=== PATIENT | male | born 1980 | race Hispanic/Latino ===

== ENCOUNTER 2019-07-21 08:20 | Day surgery (SDC) | payer MEDICARE ==
[~2019-07-21] VITALS: Ht 177.8 cm; Wt 97.1 kg
[~2019-07-21 08:20] MED LIST: DEXL60CA3 PO; DULO60CA64 PO; METO25TA6 PO; OLME20TA22 PO; ONDA4TAB10 PO; OXCA300T52 PO; SODIUM CHLORIDE 0.9% 1000ML 1,000 ML IV ONE; TOPI100T37 PO; TRAM50TA4 PO
[2019-07-21 08:30] VITALS: BP 109/75
[2019-07-21] MEDS ORDERED: LEVE750T10 PO (08:59)
[2019-07-21] MEDS ORDERED: PROPOFOL 10 MG/ML 20ML VIAL IV ONE (10:32)
[2019-07-21 10:48] VITALS: BP 95/42
[2019-07-21 10:54] VITALS: BP 99/62
[2019-07-21 11:03] VITALS: BP 106/71
[2019-07-21 11:18] VITALS: BP 114/68
== END 2019-07-21 11:22 | disposition home or self-care (01) ==
LOC: DAH 08:20 → ENDO 08:20
PROVIDERS: ATTEND Internal Medicine
DX: K85.90 Acute pancreatitis without necrosis or infection, unspecified (principal); K29.70 Gastritis, unspecified, without bleeding; K76.0 Fatty (change of) liver, not elsewhere classified; K21.9 Gastro-esophageal reflux disease without esophagitis; I10 Essential (primary) hypertension; F32.9 Major depressive disorder, single episode, unspecified; Z79.899 Other long term (current) drug therapy; Z83.3 Family history of diabetes mellitus; Z98.1 Arthrodesis status; Z98.890 Other specified postprocedural states
CPT/HCPCS: 43259; A4215; A4221; A4222; A4223; A4606; A4615; A4663; J2704; J7030

== ENCOUNTER → 2019-09-18 | Outpatient (CLI) | payer MEDICARE ==
[~2019-09-18] MED LIST changes: +LEVE750T10 PO; -SODIUM CHLORIDE 0.9% 1000ML 1,000 ML IV ONE
[2019-09-18 15:12] LABS: BASOPHILS % (AUTO) 0.8 % (0.0-5.0); EOSINOPHILS % (AUTO) 1.3 % (0.0-8.0); HEMATOCRIT 45.8 % (42-54); LYMPHOCYTES % (AUTO) 34.6 % (21.0-51.0); MEAN CORPUSCULAR HEMOGLOBIN 30.4 pg (27.0-33.0); MEAN CORPUSCULAR HGB CONC 32.8 g/dL (32.0-36.0); MEAN CORPUSCULAR VOLUME 92.7 fL (79-99); MONOCYTES % (AUTO) 9.3 % (3.0-13.0); NEUTROPHILS % (AUTO) 53.8 % (40.0-77.0); PLATELET COUNT (AUTO) 271 K/uL (130-400); RED BLOOD CELL COUNT(AUTO) 4.94 MIL/uL (4.50-6.20); RED CELL DISTRIBUTION WIDTH 12.6 % (11.0-15.5)
[2019-09-18 15:31] LABS: ALBUMIN 4.1 g/dL (3.5-5.0); BILIRUBIN,TOTAL 0.5 mg/dL (0.2-1.0); CREATININE 0.9 mg/dL (0.5-1.5); POTASSIUM 3.9 mmol/L (3.5-5.1); TOTAL PROTEIN, SERUM 7.5 g/dL (6.0-8.3)
== END | disposition home or self-care (01) ==
LOC: RAH 14:38
PROVIDERS: ATTEND Internal Medicine Gastroenterology
DX: K85.90 Acute pancreatitis without necrosis or infection, unspecified (principal); R10.11 Right upper quadrant pain; R19.4 Change in bowel habit
CPT/HCPCS: 36415; 80053; 82150; 82784; 83690; 85025